=== PATIENT | male | born 1995 | race Caucasian/White ===

== ENCOUNTER 2018-09-03 14:03 | Emergency (ER) | payer OTHER ==
[~2018-09-03] VITALS: Wt 93.2 kg
[2018-09-03] MEDS ORDERED: KETOROLAC 30 MG INJ IM STA (17:20)
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
[2018-09-03] MEDS ORDERED: CYCL10TA7 PO (18:33)
[2018-09-03] MEDS ORDERED: IBUP-1542 PO (18:33)
[2018-09-03] MEDS ORDERED: HYDR-4011 PO (18:33)
[2018-09-03] MEDS ORDERED: HYDROCODONE/APAP (5/325) TAB PO ONE (19:00)
[2018-09-03 19:02] VITALS: BP 116/71; PULSE 55; RESP 18
== END 2018-09-03 19:03 | disposition home or self-care (01) ==
LOC: FTE 14:03
DX: M54.5 Low back pain (principal)
CPT/HCPCS: 72072; 72100; 96372; J1885; Z7502; Z7610